=== PATIENT | female | born 2000 | race Caucasian/White ===

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

== ENCOUNTER 2022-03-22 23:24 | Emergency (ER) | payer BC, MEDICAID, OTHER ==
[~2022-03-22] VITALS: Ht 160 cm; Wt 68.0 kg
[2022-03-23 00:23] VITALS: BP 120/77
== END 2022-03-23 02:00 | disposition left against medical advice (07) ==
LOC: ER 23:24 → EDBD 23:24 → ER 03-23 02:00
DX: R55 Syncope and collapse (principal); F10.10 Alcohol abuse, uncomplicated; Y90.9 Presence of alcohol in blood, level not specified; Z53.21 Procedure and treatment not carried out due to patient leaving prior to being seen by health care provider
CPT/HCPCS: 93005

== ENCOUNTER 2023-01-13 01:21 | Emergency (ER) | payer SELFPAY ==
[~2023-01-13] VITALS: Ht 175.3 cm; Wt 72.0 kg
[2023-01-13] MEDS ORDERED: CYCL-837 PO (02:52)
[2023-01-13] MEDS ORDERED: IBUP800T26 PO (02:52)
[2023-01-13] MEDS ORDERED: KETOROLAC TROMETH 30 MG/ML 1ML VIAL IM ONE (03:00)
[2023-01-13 04:03] VITALS: BP 106/60
== END 2023-01-13 04:24 | disposition home or self-care (01) ==
LOC: ER 01:21 → EDBD 01:21 → ER 04:24
DX: S13.4XXA Sprain of ligaments of cervical spine, initial encounter (principal); S00.83XA Contusion of other part of head, initial encounter; Z88.2 Allergy status to sulfonamides; Z98.890 Other specified postprocedural states; V89.2XXA Person injured in unspecified motor-vehicle accident, traffic, initial encounter; Y93.89 Activity, other specified; Y92.89 Other specified places as the place of occurrence of the external cause; Y99.8 Other external cause status
CPT/HCPCS: 70450; 71250; 72125; 74176; 96372; 99285; J1885